=== PATIENT | male | born 1975 | race Caucasian/White ===

== ENCOUNTER 2023-06-21 13:30 | Emergency (ER) | payer OTHER ==
[2023-06-21 14:32] VITALS: O2SAT 98
--- NOTE | 2023-06-21 14:35 | ERPHSYRPT ---
- History of Present Illness Time Seen by Provider: 06/21/23 14:35 Source: patient Exam Limitations: no limitations Patient Subjective Stated Complaint: PT states "I was walking and when I turned, there was a terrible pop and now the inside of my left knee hurts really bad." Triage Nursing Assessment: Pt presented alert and oriented X3, skin pwd. Pt ambulates with a limp. PT resting on the wheelchair comfortably. Physician History: This is a 48-year-old white male patient who turned around and twisted left knee earlier and felt a pop sensation the medial aspect of his knee on the left. Since then he has had bad pain with movement. There is tenderness that is localized in the same area. 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 The [place] [facility] is closed today. Patient states that he has to work. He cannot miss work. He was hoping to have some kind of brace that he could wear while working that keeps him mobile. He does not want a note to be off work. Quality: constant, sharpness Severity of Pain-Max: moderate Severity of Pain-Current: moderate Lower Extremities Pain: knee: left (Medial aspect inferior to the patella) Modifying Factors: Improves With: movement Associated Symptoms: popping sensation, other (Hurts to bear weight but is able to do so) Allergies/Adverse Reactions: No Known Drug Allergies Allergy (Verified 06/21/23 14:32) Hx Tetanus, Diphtheria Vaccination/Date Given: No Hx Influenza Vaccination/Date Given: No Hx Pneumococcal Vaccination/Date Given: No Immunizations Up to Date: No Travel Risk - International Travel Have you traveled outside of the country in past 3 weeks: No - Coronavirus Screening Are you exhibiting any of the following symptoms?: No Close contact with a COVID-19 positive Pt in past 14-21 Days: No - Vaccine Status Have you recieved a Covid-19 vaccination: Yes Lab Asst: Moderna - Vaccination Dates Date of 2cond Vaccination (if applicable): 2020 - Review of Systems Constitutional: No Symptoms Eyes: No Symptoms Ears, Nose, & Throat: No Symptoms Respiratory: No Symptoms Cardiac: No Symptoms Abdominal/Gastrointestinal: No Symptoms Genitourinary Symptoms: No Symptoms Musculoskeletal: Joint Pain (Left knee), No Fall Skin: No Symptoms Neurological: No Symptoms Psychological: No Symptoms Endocrine: No Symptoms Hematologic/Lymphatic: No Symptoms Immunological/Allergic: No Symptoms All Other Systems: Reviewed and Negative - Past Medical History Pertinent Past Medical History: Yes Psycho-Social History: Anxiety - Past Surgical History Past Surgical History: No - Social History Smoking Status: Never smoker Exposure to second hand smoke: No Drug Use: none Patient Lives Alone: No - Nursing Vital Signs Nursing Vital Signs: Initial Vital Signs Temperature 97.2 F 06/21/23 14:27 Pulse Rate 86 06/21/23 14:27 Respiratory Rate 20 06/21/23 14:27 Blood Pressure 129/69 06/21/23 14:27 O2 Sat by Pulse Oximetry 98 06/21/23 14:27 Pain Scale Pain Intensity 9 - Physical Exam General Appearance: no apparent distress, alert, anxiety Eyes, Ears, Nose, Throat Exam: normal ENT inspection, moist mucous membranes Neck Exam: normal inspection, non-tender, supple, full range of motion Cardiovascular/Respiratory Exam: chest non-tender, no respiratory distress Gastrointestinal/Abdominal Exam: non-tender Back Exam: normal inspection, normal range of motion, No CVA tenderness, No vertebral tenderness Hips Exam: bilateral: non-tender, normal inspection, normal range of motion, no evidence of injury Legs Exam: bilateral leg: non-tender, normal inspection, normal range of motion, no evidence of injury Knees Exam: right knee: non-tender, left knee: soft tissue tenderness (Very localized tenderness to palpation medial aspect below the patella.), bilateral knee: normal inspection, normal range of motion, no evidence of injury Ankle Exam: bilateral ankle: non-tender, normal inspection, normal range of motion, no evidence of injury Foot Exam: bilateral foot: non-tender, normal inspection, normal range of motion, no evidence of injury Neuro/Tendon Exam: normal sensation, normal motor functions, normal tendon functions, responds to pain, no evidence tendon injury Mental Status Exam: alert, oriented x 3, cooperative Skin Exam: normal color, warm, dry SpO2 Interpretation: normal SpO2: 98 O2 Delivery: Room Air - Course Nursing assessment & vital signs reviewed: Yes Ordered Tests: Active Orders 24 hr Category Date Time Status KNEE (3 VIEWS) Stat Exams 06/21/23 14:16 Completed Medication Summary Discontinued Medications Generic Name Dose Route Start Last Admin Trade Name Freq PRN Reason Stop Dose Admin Naproxen 500 mg 06/21/23 15:29 06/21/23 15:41 Naproxen 500 Mg Tablet PO 06/21/23 15:30 500 mg STAT ONE Administration Oxycodone/Acetaminophen 1 tab 06/21/23 15:29 06/21/23 15:41 Oxycodone Hcl/Apap 5 Mg/325 Mg Tablet PO 06/21/23 15:30 1 tab STAT STA Administration Oxycodone/Acetaminophen Confirm 06/21/23 15:34 Oxycodone Hcl/Apap 5 Mg/325 Mg Tablet Administered 06/21/23 15:35 Dose 1 tab .ROUTE .STK-MED ONE - Progress Progress: improved, pain not gone completely, re-examined Progress Note: 06/21/23 16:00 Patient's medical issue is 1 of low complexity. The level complex in the workup performed is based on review of the patient's past medical history, review the patient's medication list, review of patient drug allergy list, history of present illness and physical findings on examination. This patient workup includes 3 view x-ray of the left knee. The radiologist reviewed and interpreted the x-ray of the left knee. There is tiny spurring present medial compartment and superior patella. No acute fracture or dislocation. I discussed these findings with the patient and his spouse The patient works in the mine. The [place] [facility] is closed. The patient states he does not want a note to return to work or be off work. Patient states he would like some type of knee brace if possible. I checked with nursing staff and the only knee brace we have is a knee immobilizer which is not what the patient needs or wishes to have. Patient was told to go to [employer] and purchase a soft neoprene brace which they can fit for him that we will provide him with support as well as minimize his pain and maximize his ability to move his left knee. I also provided him with a dose of 500 mg naproxen and 1 tablet of Percocet 5/325 here in the emergency department. We also sent remotely prescription for the same to his pharmacy. Patient and his spouse was wondering about an MRI which is an outpatient study in this scenario. He will have to follow-up as an outpatient to get that study ordered if indicated. 06/21/23 16:09 Counseled pt/family regarding: diagnosis, need for follow-up, rad results Medical Desision Making - Independent Historian Additional History obtained from: Spouse - Diagnostic Testing Radiological Interpretation: Reviewed by me, Teleradiologist Report - Risk of complications The pt has a mod risk of morbidity or mortality based on: Need for prescription drug management - Departure Departure Disposition: Home Clinical Impression: Left anterior knee pain Condition: Stable Critical Care Time: No Referrals: WILLIAMS GONZALES, SPOILAGE WORKER [Primary Care Provider] - Follow up/PCP as directed Additional Instructions: Ice pack to area 3 times a day for the next 48 hours. May follow-up with the [place] [facility] at [facility] or follow-up with the [facility] orthopedic clinic on 06/24/2023 between the hours of 8 AM and 10 AM. It is a walk-in clinic and you do not need to have an appointment. The MRI of the knee is an outpatient study and typically requires preauthorization from your insurance company. Discussed this issue with the [place] [facility] or the [facility] orthopedic clinic on 06/24/2023. In addition, follow-up at [facility] pharmacy to have a neoprene support left knee brace that they can fit to provide you comfort and stability. Prescriptions: Oxycodone HCl/Acetaminophen [Percocet 5-325 mg Tablet] 1 each PO Q8H PRN PRN #6 tablet MDD 3 PRN Reason: Moderate To Severe Pain Naproxen 500 mg [Naprosyn 500 MG] 500 mg PO BID #10 tablet
--- NOTE | 2023-06-21 14:54 | XRAY ---
Indication: Pain following twisting injury. Comparison: None 3 view left knee demonstrates tiny spurring medial the compartment and superior patella. Incidental posterior fabella. No other bony, articular, or soft tissue abnormalities.
[2023-06-21] MEDS ORDERED: PERCOCET TABLET 5/325MG ONE (15:34)
[2023-06-21] MEDS: PERCOCET TABLET 5/325MG PO STA (15:41)
[2023-06-21] MEDS: Naprosyn 500 MG PO ONE (15:41)
[2023-06-21 16:11] VITALS: BP 128/90; PULSE 94; RESP 20; TEMP 98
== END 2023-06-21 16:30 | disposition home or self-care (01) ==
LOC: ED 13:30
DX: M25.562 Pain in left knee (principal); Z79.891 Long term (current) use of opiate analgesic
CPT/HCPCS: 73562; 99283; A9270-GY

== ENCOUNTER 2023-09-14 10:25 | Emergency (ER) | payer OTHER ==
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
[2023-09-14 10:41] VITALS: TEMP 97
[2023-09-14] MEDS ORDERED: TORAdol 30 mg Injection ONE (11:06)
[2023-09-14] MEDS ORDERED: Sodium Chloride 0.9% 1000 ML 1,000 ML ONE (11:06)
[2023-09-14] MEDS: Sodium Chloride 0.9% 1000 ML 1,000 ML IV STA (11:06)
[2023-09-14] MEDS: TORAdol 30 mg Injection IV ONE (11:07)
[2023-09-14 11:11] LABS: Absolute Neutrophil Ct (ANC) 6.94 x10^3/uL (1.78-5.38); BASOPHIL % 0.4 % (0.2-1.2); Basophil (Absolute #) 0.03 x10^3/uL (0.01-0.08); Eosinophil (Absolute #) 0.25 x10^3/uL (0.04-0.54); Hemoglobin 14.6 g/dL (13.7-17.5); IMMATURE GRAN # 0.02 x10^3u/L (0.001-0.031); IMMATURE GRAN % 0.2 % (0.001-0.429); Lymphocytes % 8.3 % (21.8-53.1); Mean Cell Volume 89.6 fL (79.0-92.2); Mean Corpuscular Hemoglobin 29.7 pg (25.7-32.2); Mean Corpuscular Hgb Concent. 33.2 g/dL (32.3-36.5); Monocyte (Absolute #) 0.52 x10^3/uL (0.30-0.82); Monocytes % 6.1 % (5.3-12.2); Platelet Count 258 x10^3/uL (163-337); Red Blood Count 4.91 x10^6/uL (4.63-6.08); Red Cell Distribution Width 12.4 % (11.6-14.4); White Blood Count 8.5 x10^3/uL (4.23-9.07)
[2023-09-14 11:22] LABS: ALBUMIN 4.3 g/dL (3.5-5.0); ANION GAP 13.2 MEQ/L (5-15); BILIRUBIN,TOTAL 1.9 mg/dL (0.2-1.3); Calcium 9.1 mg/dL (8.4-10.2); Creatinine 1 1.01 mg/dL (0.66-1.25); EST GLOMERULAR FILTRATION RATE 91.2 ML/MIN; Potassium 3.7 mmol/L (3.5-5.1); Total Protein 7.6 g/dL (6.3-8.2)
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
[2023-09-14 12:07] VITALS: PULSE 62
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
[2023-09-14 13:09] VITALS: RESP 18
[2023-09-14 13:17] VITALS: O2SAT 96
[2023-09-14 14:08] VITALS: BP 114/86
== END 2023-09-14 14:11 | disposition home or self-care (01) ==
LOC: ED 10:25
DX: S29.9XXA Unspecified injury of thorax, initial encounter (principal); V89.0XXA Person injured in unspecified motor-vehicle accident, nontraffic, initial encounter; Y92.64 Mine or pit as the place of occurrence of the external cause; Y99.0 Civilian activity done for income or pay; R91.1 Solitary pulmonary nodule; N20.0 Calculus of kidney; K57.90 Diverticulosis of intestine, part unspecified, without perforation or abscess without bleeding; M50.30 Other cervical disc degeneration, unspecified cervical region; R73.9 Hyperglycemia, unspecified
CPT/HCPCS: 36415; 71250; 72125; 80053; 84484; 85025; 93005; 96360; 96374; 99284; J1885